=== PATIENT | male | born 2000 | race Caucasian/White ===

== ENCOUNTER 2022-04-28 09:31 | Emergency (ER) | payer SELFPAY | END 2022-04-28 10:32 | disposition home or self-care (01) | LOC: BURERS 09:31 | DX: S62.032A Displaced fracture of proximal third of navicular [scaphoid] bone of left wrist, initial encounter for closed fracture (principal); F17.210 Nicotine dependence, cigarettes, uncomplicated; Y04.0XXA Assault by unarmed brawl or fight, initial encounter ==

== ENCOUNTER 2025-01-12 11:34 | Emergency (ER) | payer SELFPAY ==
[2025-01-12] MEDS ORDERED: Boostrix 0.5 ML (Tdap) VIAL (>/=7 yrs of age) ONE (12:03)
== END 2025-01-12 12:20 | disposition home or self-care (01) ==
LOC: BURERS 11:34
DX: S91.331A Puncture wound without foreign body, right foot, initial encounter (principal); F17.210 Nicotine dependence, cigarettes, uncomplicated; X58.XXXA Exposure to other specified factors, initial encounter; Y99.0 Civilian activity done for income or pay
CPT/HCPCS: 90471; 90715